=== PATIENT | male | born 1995 | race Caucasian/White ===

== ENCOUNTER 2023-02-02 09:16 | Outpatient (CLI) | payer OTHER, SELFPAY ==
--- NOTE | ~2023-02-02 | US_ITS ---
Limited Abdominal Sonogram: Real-time sonographic imaging of the right upper quadrant was performed. Clinical History: Abnormal blood chemistry Findings: The liver appears echogenic, with no evidence of mass lesion or bile duct dilatation. Main portal vein demonstrates normal direction of flow. The gallbladder is well distended, without mobile gallstone. 4 mm gallbladder wall polyp noted. The common bile duct measures 4 mm. The visualized pa ncreas, aorta, and IVC are unremarkable. Impression: 4 mm gallbladder wall polyp. Diffuse fatty infiltration of the liver. Reviewed, dictated and finalized at location M. Impression: 4 mm gallbladder wall polyp. Diffuse fatty infiltration of the liver.
== END 2023-02-02 09:17 | disposition home or self-care (01) ==
LOC: ANHIMG 09:17
PROVIDERS: PCP Internal Medicine; Visit Provider Nurse Practitioner
DX: R79.89 Other specified abnormal findings of blood chemistry (principal); K82.4 Cholesterolosis of gallbladder; K76.0 Fatty (change of) liver, not elsewhere classified
CPT/HCPCS: 76705